=== PATIENT | female | born 1930 | race Caucasian/White ===

== ENCOUNTER 2017-12-29 17:17 | Inpatient (IN) | payer MEDICARE, MEDICAID ==
[2017-12-29 17:54] VITALS: BP 154/80
[2017-12-29] MEDS ORDERED: Maalox 30 mL Cup PO PRN (22:16)
[2017-12-29] MEDS ORDERED: Magnesium Hydroxide (MOM) 30 mL UDC PO PRN (22:16)
[2017-12-30] MEDS: Multivitamin Tab PO SCH (08:23)
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
[2017-12-30] MEDS: INSULIN ASPART SLIDING SCALE 100 UNITS/ML UNIT SUBQ SCH ×2 (17:26→20:52)
[2017-12-31] MEDS: INSULIN ASPART SLIDING SCALE 100 UNITS/ML UNIT SUBQ SCH ×4 (06:44→20:41)
[2017-12-31 07:17] LABS: ANION GAP 12.5 (7.0-16.0); BUN - UREA NITROGEN 19 mg/dL (7-25); CALCIUM SERUM 9.6 mg/dL (8.6-10.3); CARBON DIOXIDE 23.5 mEq/L (21.0-31.0); CHLORIDE 106 mEq/L (98-107); CHOLESTEROL 115 mg/dL (<200); CREATININE - SERUM 0.7 mg/dL (0.6-1.2); GLUCOSE 185 mg/dL (70-105); HDL -HIGH DENSITY LIPOPROTEIN 36 mg/dL (23-92); SODIUM SERUM 138 mEq/L (136-145); TRIGLYCERIDES 114 mg/dL (<150)
[2017-12-31] MEDS: Multivitamin Tab PO SCH (09:15)
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
[2018-01-01] MEDS: INSULIN ASPART SLIDING SCALE 100 UNITS/ML UNIT SUBQ SCH ×4 (06:38→20:35)
[2018-01-01] MEDS: Multivitamin Tab PO SCH (09:28)
--- NOTE | 2018-01-01 21:28 | Progress Notes ---
DATE: 01/01/2018 SUBJECTIVE: Case was discussed with staff of the patient, reviewed records. The patient continues to be unpredictable, impulsive, continues to have poor insight, easily agitated. The patient is also demented, confused, unable to participate in meaningful conversation or make safe plan for self-care. I did initiate Aricept on her yesterday and see how she responds to it before adding more heavy duty medication and we will continue with the patient in group therapy, milieu therapy, and adjust her medications. JOB# [id number]
[2018-01-02] MEDS: INSULIN ASPART SLIDING SCALE 100 UNITS/ML UNIT SUBQ SCH ×4 (06:30→20:48)
[2018-01-02] MEDS: Multivitamin Tab PO SCH (08:46)
--- NOTE | 2018-01-02 17:19 | Progress Notes ---
DATE: 01/02/2018 Case was discussed with staff of the patient, reviewed records. The patient continues to isolate herself, stays to herself. She continues to be unpredictable, impulsive, delusional, unable to make safe plan for self-care. Continues to have poor insight. No side effects to the medication and I initiate her on Aricept 5 mg at bedtime. I will continue outpatient group therapy, milieu therapy, adjust the medication as needed. JOB# [id number]
[2018-01-03] MEDS: INSULIN ASPART SLIDING SCALE 100 UNITS/ML UNIT SUBQ SCH ×4 (06:35→20:42)
[2018-01-03] MEDS: Multivitamin Tab PO SCH (09:22)
--- NOTE | 2018-01-03 16:45 | Progress Notes ---
DATE: 01/03/2018 FOLLOW-UP PROGRESS NOTE PROGRESS ON THE UNIT: Case was discussed with staff of the patient, reviewed records. The patient continues to be internally preoccupied, stays to herself. She is demented, confused, unable to make a safe plan for self-care or participate in meaningful conversation, unpredictable, and impulsive. No side effects with the medication, no sedation, no nausea. PLAN: We will continue to work with the patient in group therapy and milieu therapy, adjust the medications as needed. JOB# [id number]
[2018-01-04] MEDS: INSULIN ASPART SLIDING SCALE 100 UNITS/ML UNIT SUBQ SCH ×4 (06:39→21:01)
[2018-01-04] MEDS: Multivitamin Tab PO SCH (10:02)
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
[2018-01-05] MEDS: INSULIN ASPART SLIDING SCALE 100 UNITS/ML UNIT SUBQ SCH ×4 (06:44→20:23)
[2018-01-05] MEDS: Multivitamin Tab PO SCH (08:13)
--- NOTE | 2018-01-05 19:28 | Progress Notes ---
DATE: 01/05/2018 SUBJECTIVE: The patient was seen and evaluated. The patient's chart reviewed. Today, on zknk-to-dknh evaluation, the patient continues to present easily irritable, agitated, perseverates about her having an affair. MENTAL STATUS EXAMINATION: Disorganized. ASSESSMENT AND PLAN: The patient is an 87-year-old female with a history of dementia and behavior disturbance. We will continue with primary psychiatrist's treatment plan and goals, which include Aricept 5 mg, metformin to continue and target the patient's symptoms and safety. JOB# [id number]
[2018-01-06] MEDS: INSULIN ASPART SLIDING SCALE 100 UNITS/ML UNIT SUBQ SCH ×4 (06:49→21:29)
[2018-01-06] MEDS: Multivitamin Tab PO SCH (08:27)
--- NOTE | 2018-01-07 00:42 | Progress Notes ---
DATE: 01/06/2018 SUBJECTIVE: Case was discussed with staff of the patient and reviewed records. The patient continues to be irritable, agitated, and continues to be delusional at times. She believes her is having an affair. She is demented, confused, and unable to make safe plan for her self-care. She has been compliant with the medication with no side effects, no sedation, no nausea, and no extrapyramidal symptoms. PLAN: I will be adding Namenda to her medication to help with her cognitive disorder, unable to remember things, becoming delusional because of that and ____. We will continue to have the patient in group therapy, milieu therapy, and adjust medications as needed. [facility]# [id number]
[2018-01-07] MEDS: INSULIN ASPART SLIDING SCALE 100 UNITS/ML UNIT SUBQ SCH ×4 (06:52→20:40)
[2018-01-07] MEDS: Multivitamin Tab PO SCH (09:10)
--- NOTE | 2018-01-07 20:58 | Progress Notes ---
DATE: 01/07/2018 Case was discussed with staff of the patient, reviewed records. The patient continues to be delusional. Continues to be confused. Continues to be unable to make safe plan for self-care, unpredictable, impulsive. I initiated her Namenda yesterday. She is also on Aricept 5 mg at bedtime. Still trying to see how she improves, maybe her paranoia will go down and we will continue to work with the patient in group therapy, milieu therapy, and adjust the medications as needed. JOB# [id number]
[2018-01-08] MEDS: INSULIN ASPART SLIDING SCALE 100 UNITS/ML UNIT SUBQ SCH ×4 (06:38→21:21)
[2018-01-08] MEDS: Multivitamin Tab PO SCH (08:50)
--- NOTE | 2018-01-09 01:21 | Progress Notes ---
DATE: 01/08/2018 SUBJECTIVE: Case was discussed with staff of the patient, reviewed records. The patient continues to be demented, confused, somewhat paranoid, delusional; though, I did add Namenda. She is on Aricept as well as she is demented and confused and I do not want to add ____ we have to. She has been redirectable. No side effects with the medication, no sedation, and no nausea. We will continue to work with the patient in group therapy, milieu therapy, and adjust the medications as needed. JOB# [id number]
[2018-01-09] MEDS: INSULIN ASPART SLIDING SCALE 100 UNITS/ML UNIT SUBQ SCH ×4 (06:43→21:34)
[2018-01-09] MEDS: Multivitamin Tab PO SCH (09:20)
--- NOTE | 2018-01-09 17:37 | Progress Notes ---
DATE: 01/09/2018 Case was discussed with staff of the patient. The patient continues to be confused, demented, delusional. Continues to have poor insight, continues to need redirection. Continues to be paranoid. I will be adding Abilify to her medication a small dose at 2.5 mg and discussed side effects. I will continue to work with the patient in group therapy, milieu therapy, adjust the medication as needed. JOB# [id number]
[2018-01-10] MEDS: INSULIN ASPART SLIDING SCALE 100 UNITS/ML UNIT SUBQ SCH ×4 (06:52→21:30)
[2018-01-10] MEDS: Multivitamin Tab PO SCH (08:32)
--- NOTE | 2018-01-10 21:23 | Progress Notes ---
DATE: 01/10/2018 Case was discussed with staff of the patient, reviewed records. The patient continues to be unpredictable, impulsive. I talked to her through a supervisor purification. She is sleeping better, eating better. No side effects with the medication, no sedation, no nausea, no extrapyramidal symptoms. She continues to be somewhat labile. She was able to tell me the date today. So, there is some progress there. I will continue to work with the patient in group therapy, milieu therapy, adjust medication as needed. JOB# [id number]
[2018-01-11] MEDS: INSULIN ASPART SLIDING SCALE 100 UNITS/ML UNIT SUBQ SCH ×4 (06:51→21:36)
[2018-01-11] MEDS: Multivitamin Tab PO SCH (09:32)
[2018-01-12] MEDS: INSULIN ASPART SLIDING SCALE 100 UNITS/ML UNIT SUBQ SCH ×4 (06:39→20:36)
[2018-01-12] MEDS: Multivitamin Tab PO SCH (09:26)
--- NOTE | 2018-01-12 20:25 | Progress Notes ---
DATE: SUBJECTIVE: The patient was seen and evaluated. The patient's chart reviewed. Overnight nursing staff reporting, the patient continues to need slight redirection secondary to the unpredictable impulsive behavior. It was noted yesterday, although she is sleeping slightly better, eating better. No side effects of medication. She was able to tolerate yesterday. Today on rlps-qs-hefx evaluation, the patient is noted to be little more organized and more linear. She does report that she continues to miss her family and wants to go home. MENTAL STATUS EXAMINATION: Still withdrawn. ASSESSMENT AND PLAN: The patient starting to show some mild clarity and some mild improvement with the Abilify augmented to 2.5 mg on 01/10 without complications. No tardive dyskinesia. No EPS or akathisia. JOB# [id number]
[2018-01-13] MEDS: INSULIN ASPART SLIDING SCALE 100 UNITS/ML UNIT SUBQ SCH ×4 (06:31→21:40)
[2018-01-13] MEDS: Multivitamin Tab PO SCH (10:34)
--- NOTE | 2018-01-13 22:02 | Progress Notes ---
DATE: 01/12/2018 SUBJECTIVE: The patient was seen and evaluated. Covering for Dr. Mcdonnell. Today on [id number]-wm-dkbm evaluation, the patient denies any ____. She reports she is sleeping a lot better overnight and feels like her mood is little bit better and she misses her family. MENTAL STATUS EXAMINATION: Little bit less depressed, less distracted. ASSESSMENT AND PLAN: Belle is an 87-year-old female with history of depression and neurocognitive impairment. We will continue with the current medication regimen. She is ____ within the last 48 hours. JOB# [id number]
[2018-01-14] MEDS: INSULIN ASPART SLIDING SCALE 100 UNITS/ML UNIT SUBQ SCH (06:37)
[2018-01-14] MEDS: Multivitamin Tab PO SCH (08:44)
--- NOTE | 2018-01-14 22:01 | Discharge Summary ---
DATE OF DISCHARGE: 01/14/2018 AGE: 87. SEX: Female. PHYSICIAN: Dr. Rivas. FINAL DIAGNOSIS/PRIMARY DIAGNOSIS: Unspecified psychosis. REASON FOR HOSPITALIZATION: The patient was admitted to the hospital because of increased paranoia and irritability and the patient was suspicious about her having an affair and she was angry with him. The patient was admitted to the hospital. HOSPITAL COURSE: The patient continued to be angry and suspicious and paranoid. The patient also continued to express her anger towards her . She also was easily irritable. Gradually, the patient's affect became brighter. The patient was less depressed. The patient denies any intention to harm her or others. Family wanted the patient back home and the patient was discharged there. During hospitalization, the patient had no major medical problems while in the hospital. AFTER DISCHARGE PLAN: The patient discharged from the hospital with plans for followup as an outpatient and the patient was given an appointment to see me in my office in [facility] for 01/21/2018. Appointment was given to the patient upon discharge. EXPECTED OUTCOME AFTER DISCHARGE: Fair if the patient continues to take her medications. JOB# [id number]
--- NOTE | 2018-01-15 00:17 | Progress Notes ---
DATE: 01/13/2018 Chart reviewed and the patient interviewed. Also discussed the patient's condition with the staff and reviewed records and labs. The patient is still suspicious and paranoid. The patient also is still thinking that her is cheating on her, but at the same time she is asking now to go home. She still seems to be at times angry, but she denies any intention to harm herself or others. She also is compliant with taking her medications with no side effect of medications. ASSESSMENT: The patient is less psychotic and less agitated. TREATMENT PLAN: Discussed with case management coordinator the return of mind, she would try to confirm that. Also, at the same time, we will continue to monitor her behavior and we will continue to follow up. [facility]# [id number]
== END 2018-01-14 11:30 | disposition home or self-care (01) | DRG 885 ==
LOC: GERO 17:17
PROVIDERS: ADMIT Psychiatry & Neurology Psychiatry; ATTEND Psychiatry & Neurology Psychiatry
DX: F23 Brief psychotic disorder (principal); F03.91 Unspecified dementia, unspecified severity, with behavioral disturbance; F41.9 Anxiety disorder, unspecified; F39 Unspecified mood [affective] disorder; I10 Essential (primary) hypertension; E78.00 Pure hypercholesterolemia, unspecified; E11.9 Type 2 diabetes mellitus without complications; R45.850 Homicidal ideations; Z79.84 Long term (current) use of oral hypoglycemic drugs; Z91.81 History of falling
CPT/HCPCS: 36415-UA; 80048-TC; 80061-TC; 82948-90; 83036-90; 84443-TC; 97530; G0410; J1815; X3904; Z7610